=== PATIENT | male | born 1950 | race Caucasian/White ===

== ENCOUNTER 2025-06-22 08:23 | Outpatient (REF) | payer BC, SELFPAY ==
--- NOTE | ~2025-06-22 | XR_ITS ---
EXAMINATION: XR KNEE 3 VIEWS RIGHT HISTORY: M25.561 - Pain in right knee COMPARISON: There are no prior studies available for comparison. FINDINGS: Standing AP views of both knees and additional lateral and sunrise patellar views of the right knee are submitted. The patient is status post right total knee arthroplasty. The orthopedic elements are in anatomic alignment. There is no radiographic evidence of loosening. There is no fracture or dislocation. 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 The soft tissues are unremarkable. XR/XR knee RT 3V IMPRESSION: Status post right total knee arthroplasty. Electronically signed by: Jeb Purcell MD 06/22/2025 11:05 AM [place]
--- OUTSIDE RECORDS SUMMARY | 2025-06-23 08:31 | XMS_ITS | Clinical Summary ---
Author Organization [facility] [address] [facility] lding Address [address] [place] [address] Phone Care Team Providers Care Title I Paraprofessional Name Role Phone Ramiro Storey MD Primary Care Provider [phone] Allergies Active Allergy Reactions Criticality Noted Date [...] a day 1 each 5 Active lancets (TrusteerTouch Delica Plus Lancet) 33 gauge Use to [...] Care Team Description 05/26/2025 Telephone Adult Medicine [place] [address] [place] [address] Ramiro Storey MD 05/08/2025 Telephone Adult [address] [address] Ramiro Storey MD 04/18/2025 Telephone Adult [address] [address] Ramiro Storey MD 04/14/2025 Telephone Adult [address] [address] DarinLindsay, PharmD 03/30/2025 Telephone Adult [address] [address] Ramiro Storey MD 03/27/2025 Telephone Adult [address] [address] Ramiro Storey MD 03/24/2025 8:59 AM EDT - 03/24/2025 11:59 PM EDT Hospital Encounter [address] [address] Bone spur of right foot Discharge Disposition: Home or Self Care from Last 3 Months Immunizations Immunization Administration Dates Next Due Tdap Tetanus diptheria acell ular pertussis (Boostrix; Adacel) 7yo and older 12/10/2006 Surgical History Surgery Date Site/Laterality Comments HERNIA REPAIR PROCEDURE: HISTORICAL HERNIA REPAIR/ING COLONOSCOPY 08/2005 PROCEDURE: HISTORICAL COLONOSCOPY; COMMENT: normal ESOPHAGOGASTRODUODENOSCOPY 03/24/2014 PROCEDURE: [place] ESOPHAGOGASTRODUODENOSCOPY TRANSORAL DIAGNOSTIC; COMMENT: Schatzki ring dilated [...] AM EST Office Visit Adult Medicine - [place] [address] [place] [address] Nickie Manriquez NP [address] [place] [address] 07/18/2025 2:00 PM EST Consult Orthopedic Surgery - [place] [address] [phone] Zackary Dumont DPM [address] [address] Health Maintenance Due Date Last Done Comments [...] Type 2 diabetes mellitus with vascular disease ([facility] V24, [facility] V28) HEMOGLOBIN A1C Routine 03/24/2025 8:47 AM EDT Type 2 diabetes mellitus with vascular disease ([facility] V24, [facility] V28) LIPID PANEL WITH REFLEX TO DIRECT [...] Laterality Modality Lower Extremities, Foot Right [facility] 03/24/2025 1:41 PM EDT Narrative 03/24/2025 [...] Signed Date: 03/24/2025 13:41 ET Workstation ID: [id number] Transcribed By: Self Edit Transcribed Date: 03/24/2025 [...] Signed Date: 03/24/2025 13:41 ET Workstation ID: [id number] Transcribed By: Self Edit Transcribed Date: 03/24/2025 13:41 ET us Nickie Manriquez NP IMG XR PROCEDURES Final Result * Microalbumin creatinine urine ratio (03/24/2025 8:50 AM EDT) Creatinine, Urine 133.0 mg/dL LAB CHEMISTRY METHOD 03/24/2025 3:11 PM EDT [facility] Microalb, Ur 6.2 0.0 - 29.0 mg/L LAB CHEMISTRY METHOD 03/24/2025 3:11 PM EDT [facility] Microalb/Creat Ratio 5 <30 mg/g creat LAB CHEMISTRY METHOD 03/24/2025 3:11 PM EDT [facility] Urine Urine specimen obtained by clean catch procedure / Unknown Non-blood Collection / Unknown 03/24/2025 8:50 AM EDT 03/24/2025 8:50 AM EDT Nickie Manriquez NP LAB URINE ORDERABLES Final Res ult [facility] [address] [place] [address], [place] [phone] * (ABNORMAL) Lipid panel with reflex to direct LDL (03/24/2025 8:47 AM EDT) Cholesterol 191 0 - 200 mg/dL LAB CHEMISTRY METHOD 03/24/2025 12:15 PM EDT [facility] Triglycerides 159(H) 0 - 150 mg/dL LAB CHEMISTRY METHOD 03/24/2025 12:15 PM EDT [facility] HDL 38(L) >=40 mg/dL LAB CHEMISTRY METHOD 03/24/2025 12:15 PM EDT [facility] LDL Calculated 121(H) 0 - 100 mg/dL LAB CHEMISTRY METHOD 03/24/2025 12:15 PM EDT [facility] Comment:Estimated LDL Calcul ated using equation: Total cholesterol - HDL cholesterol - (Triglycerides/5) VLDL Cholesterol Roderick 31.8 mg/dL LAB CHEMISTRY METHOD 03/24/2025 12:15 PM EDT [facility] Non HDL Chol. (LDL+VLDL) 153(H) <145 mg/dL LAB CHEMISTRY METHOD 03/24/2025 12:15 PM EDT [facility] Chol/HDL Ratio 5.0(H) 0.0 - 4.4 LAB CHEMISTRY METHOD 03/24/2025 12:15 PM T [facility] Blood Venous blood specimen / Unknown Venipuncture / Unknown 03/24/2025 8:47 AM EDT 03/24/2025 8:47 AM EDT us Nickie Manriquez NP LAB BLOOD ORDERABLES Final Res ult [facility] [address] [place] [address], [place] [phone] * (ABNORMAL) Hemoglobin A1c (03/24/2025 8:47 AM EDT) Hemoglobin A1C 8.8(H) <6.5 % LAB CHEMISTRY METHOD 03/24/2025 5:38 PM EDT [facility] Mean Bld Glu Estim. 206 mg/dL LAB CHEMISTRY METHOD 03/24/2025 5:38 PM EDT [facility] Blood Venous blood specimen / Unknown Venipuncture / Unknown 03/24/2025 8:47 AM EDT 03/24/2025 8:47 AM EDT [facility] BLOOD ORDERABLES Final Res ult Performing Organization Address City/[facility]/ZIP Co de Phone Number [facility] [address] [place] [address], [place] [phone] * (ABNORMAL) Comprehensive metabolic panel (03/24/2025 8:47 AM EDT) Pathologist [facility] Sodium 132(L) 133 - 145 mmol/L LAB CHEMISTRY METHOD 03/24/2025 12:15 PM EDT [facility] Potassium 5.0 3.5 - 5.5 mmol/L LAB CHEMISTRY METHOD 03/24/2025 12:15 PM EDT [facility] Chloride 98 96 - 110 mmol/L LAB CHEMISTRY METHOD 03/24/2025 12:15 PM EDT [facility] CO2 28 21 - 32 mmol/L LAB CHEMISTRY METHOD 03/24/2025 12:15 PM EDT [facility] Anion Gap 6 3 - 11 LAB CHEMISTRY METHOD 03/24/2025 12:15 PM EDT [facility] Glucose 166(H) 70 - 100 mg/dL LAB CHEMISTRY METHOD 03/24/2025 12:15 PM [facility] BUN 13 5 - 25 mg/dL LAB CHEMISTRY METHOD 03/24/2025 12:15 PM [facility] Creatinine 1.12 0.70 - 1.30 mg/dL LAB CHEMISTRY METHOD 03/24/2025 12:15 PM [facility] eGFR 68 >=60 mL/min/1. 73m2 LAB CHEMISTRY METHOD 03/24/2025 12:15 PM [facility] Comment:Calculation based on the Chronic Kidney Disease Epidemiology Collaboration (CKD-EPI) equation refit without adjustment for race. BUN/Creatinine Ratio 11.6 LAB CHEMISTRY METHOD 03/24/2025 12:15 PM [facility] Calcium 9.6 8.5 - 10.5 mg/dL LAB CHEMISTRY METHOD 03/24/2025 12:15 PM [facility] AST (SGOT) 30 10 - 42 unit/L LAB CHEMISTRY METHOD 03/24/2025 12:15 PM [facility] ALT (SGPT) 50 10 - 60 unit/L LAB CHEMISTRY METHOD 03/24/2025 12:15 PM [facility] Alkaline Phosphatase 71 42 - 121 unit/L LAB CHEMISTRY METHOD 03/24/2025 12:15 PM [facility] Total Protein 7.3 6.0 - 8.0 g/dL LAB CHEMISTRY METHOD 03/24/2025 12:15 PM [facility] Albumin 4.2 3.2 - 5.0 g/dL LAB CHEMISTRY METHOD 03/24/2025 12:15 PM [facility] Total Bilirubin 0.7 0.0 - 1.4 mg/dL LAB CHEMISTRY METHOD 03/24/2025 12:15 PM [facility] Blood Venous blood specimen / Unknown Venipuncture / Unknown 03/24/2025 8:47 AM EDT 03/24/2025 8:47 AM EDT Nickie Manriquez NP LAB BLOOD ORDERABLES Final Res ult [facility] [address] [place] [address], [place] [phone] * Diabetes Foot Exam (12/09/2023) [facility] Diabetes: Annual Foot Exam Abstracted Historical Provider HEALTH MAINTENANCE Final Result * Stool Based Tests (FOBT/FIT) (02/11/2018) [facility] Colorectal Cancer Screening: Stool Based Tests Negative, Abstracted [facility] Provider HEALTH MAINTENANCE Final Result * Abdominal Aortic Aneurysm Screen (06/20/2015) [facility] Abdominal Aortic Aneurysm (AAA) Screening Abstracted Anatomical Region Laterality Modality Other Historical Provider HEALTH MAINTENANCE Final Result * Hepatitis C Screening (12/01/2013) [facility] Hepatitis C Screening Abstracted [facility] Provider HEALTH MAINTENANCE Final Result from Last 3 Months or Most Recently Relevant to Health Maintenance Insurance [facility] Care Teams Title I Paraprofessional Relationship Specialty Start Date End Date Ramiro Storey MD [address] [place] [address] [address] [facility] - General 04/27/01
--- OUTSIDE RECORDS SUMMARY | 2025-06-23 08:31 | XMS_ITS | Clinical Summary ---
Author Organization [facility] Prior to 12/03/[address] [place] [address] Care Team Providers Care Market Analysis Director Name Role Phone Ezequiel Storey MD Primary Care Provider [phone] Allergies Active Allergy Reactions Criticality Noted Date [...] age to complete this topic Care Teams Market Analysis Director Relationship Specialty Start Date End Date Ezequiel Storey MD PCP - General Electronics Supervisor 08/27/20
--- OUTSIDE RECORDS SUMMARY | 2025-06-23 08:31 | XMS_ITS | Encounter Summary ---
Author Organization [facility] Address [address] [place] [address] Care Team Providers Care Siding Mechanic Name Role Phone Ramiro Storey MD Primary Care Provider [phone] Reason for Referral * Consultation (Routine) - Closed Specialty Diagnoses / Procedures Referred By Contac t Referred To Contact Orthopaedics Diagnoses Injury of right knee, initial encounter Ramiro Storey MD [address] [place], [place] Phone: tel: fax: Kilo Sotelo MD [address] [place] [address] Drive [address] [place] [address] Phone: tel: fax: Referral ID Status Reason Start Date Expiration Date V isits Requested Visits Authorized [id number] Closed Specialty Services Required 05/29/2025 05/29/2026 2 2 Reason for Visit * Reason Onset Date Comments Referral 05/26/2025 Encounter Details Date Type Department Care Team (Late st Contact Info) Description 05/26/2025 Telephone Adult Medicine - [place] [address] [place] [phone] Ramiro Storey MD [address] [place], [place] Social History Tobacco Use Types Packs/Day [...] this visit: Initial Visit Address of Specialist: [address] [place] [address] [place] [address] Phone # of Specialist: [phone] Fax #: (if applicable): n/a Does patient have an appointment scheduled?: no Date of appointment- (including a retro-request): TBD Is this appointment related to: Not MVA, worker compensation, or surgery related documented in this encounter Plan of Treatment Upcoming Encounters Date Type Department Care Team (Late st Contact Info) Description 07/12/2025 9:00 AM EST Office Visit Adult Medicine - [place] [address] [place] [address] Nickie Manriquez NP [address] [place] [address] 07/18/2025 2:00 PM EST Consult Orthopedic Surgery - [place] [address] [address] Zackary Dumont, DPBrenden [address] [address] Scheduled Referrals Name Type Priority Associated Diagnoses Order Schedule Ambulatory referral to Orthopedic Outpatient Referral Routine Injury of right knee, initial encounter 1 Occurrences starting 05/29/2025 until 05/26/2026 documented as of this encounter Visit Diagnoses Diagnosis Injury of right knee, initial encounter- Primary documented in this encounter Care Teams Siding Mechanic Relationship Specialty Start Date End Date Ramiro Storey MD [address] [place] [address] PCP - General 04/27/01 documented as of this encounter
--- OUTSIDE RECORDS SUMMARY | 2025-06-23 08:31 | XMS_ITS | Data Portability ---
Author Organization [place] [facility] [place] Address [address] [place] [address] Assessment Encounter Date Assessment Date Assessment LastModified [...] Recorded Time Pain of right knee joint [id number] Active 2022 Kilo Sotelo MD [address] [place] [address] [address], [place], [address] [facility] 15:00:10 Problem Notes None recorded. Procedures Surgical History Date Name Laterality Status Provider Name and Address Organization Details Recorded Time Hernia Repair completed Yahaiar Mendoza [place] - [facility], 10/03/2022 10:26:38 Imaging Results None recorded. Procedure Notes None recorded. Medical Equipment None Reported. Allergies Allergen ID Allergen Name Allergen Category Reaction Reaction Severity Criticality Documentation Date Start Date Code Code System Note Provider Name and Address Organization Details Recorded Time 287994 atenolol medicatio n Not available Not available Not available 03/28/20252004 1202 RxNorm React ion: Other (See Comme nts), sever ity: Unkno wn Not Available [facility] 5 01:31:54 1272 morphine medicatio n Not available Not available Not available 10/03/2022 7052 RxNorm Yahaira Mendoza null, [place] [facility] 3 10:24:41 Medications Name Sig Start [...] Updated DateTime 10/03/2022 172.72 cm 36.5 kg/m2 584272.[address] [place] [facility], 10/03/2022 10:25:44 Social History None recorded. Functional [...] Diagnosis Note 3048 MD PAVAN Hughescarmelita stern [address] [place] [address] [place] [address] 10/03/2022 10:13:49 10/03/2022 10:40:48 Pain of right knee joint [id number] 70420 M25.561 Health Concerns Section Related Observation LastModified by Organization Detai ls LastModified Time None Recorded Concern Status LastModified by Organization Details LastModified Time None Recorded Advance Directives Directive None Recorded Payers Insurance Date Sequence Insurance Name Policy Number Policy Suh Covered Member ID Suh Member ID Guarantor Name 01/02/2023 1 [facility]: [facility] ([facility] [id number] Juan P Lewis [id number] Juan Lewis Notes Date Note Type [...] any fevers or chills. Kilo Sotelo MD [address] [place] [address], [phone], [place] [facility] 10/04/2022 15:00:42
== END 2025-06-22 08:24 | disposition home or self-care (01) ==
LOC: HO.HOSX 08:23
PROVIDERS: Visit Provider Orthopaedic Surgery
DX: M25.561 Pain in right knee (principal); Z96.651 Presence of right artificial knee joint
CPT/HCPCS: 73562

== ENCOUNTER 2025-06-22 09:45 | Outpatient (AMB) | payer BC, SELFPAY ==
--- NOTE | 2025-06-22 11:20 | MHC.OFFVIS ---
Vital Signs 06/22/25 11:36 Height 5 ft 7 in Weight 225 lb BMI 35.2 Handedness Right Intake Visit Reasons: INVESTIGATIVE AGENT: right knee pain Intake Note: Juan is a 75 year old female who presents today for her right knee pain, DOI 01/12/25. Patient reports her was climbing a small embankment and he felt a sharp pain in his ankle and lead him to fall. With his foot hurting it is affecting his knee. Patient is hearing a crunching sound in his knee since the injury. Patient states when he puts full weight on his feet - Hx of 2 meniscus repairs 2014 and 2016 - History of right TKA with Dr Kilo Sotelo in 08/08/22 Allergies acetaminophen (From Vicodin) Allergy (Verified 06/22/25 11:34) Stomach Upset hydrocodone (From Vicodin) Allergy (Verified 06/22/25 11:34) Stomach Upset oxycodone Allergy (Verified 06/22/25 11:34) Stomach Upset HPI HPI INVESTIGATIVE AGENT: right knee pain: Details: The patient is a 75-year-old male who presents to the office today for evaluation of right knee clunking. Patient reports that he had a prior right total knee arthroplasty with Dr. Sotelo on 08/08/2022. He sustained a mechanical fall on 01/12/2025 and ever since then has noted that he has heard clunking in the right knee with a varus and valgus movements. [facility] Social History (Updated 06/22/25 @ 11:36 by Dennis Ivy) Alcohol intake: current Alcohol intake frequency: holidays/special occasions only Patient Tobacco Use Status: Never used Tobacco Current occupational status: retired Current occupation: right hand dominant Review of Systems Const All systems reviewed & are unremarkable except as noted in HPI and below Physical Exam Vital Signs: BMI result Body Mass Index 35.2 Const General: cooperative, healthy appearing and no acute distress Resp Effort & Inspection: normal respiratory effort and able to speak in complete sentences Extrem Other: Right knee range of motion 0-120. No excessive varus or valgus laxity with stress. No evidence of infection. NVI. Psych Appearance: grossly normal Mental Status: mental status grossly normal Attitude: cooperative Assessment & Plan Assessment & Plan (1) History of arthroplasty of right knee: Code(s): Z96.651 - Presence of right artificial knee joint Category: Surgical Plan The patient is a 75-year-old male who presents to the office today for evaluation of right knee clunking. Patient reports that he had a prior right total knee arthroplasty with Dr. Sotelo on 08/08/2022. He sustained a mechanical fall on 01/12/2025 and ever since then has noted that he has heard clunking in the right knee with a varus and valgus movements. While in the office today, x-rays were obtained and negative for any periprosthetic fracture or evidence of arthroplasty loosening. Patient does not have excessive laxity with a varus or valgus stress. I educated the patient that the sound that he is hearing as well as no associated pain is normal status post knee arthroplasty. Patient will follow up PRN, sooner if needed. Orders: Orders XR knee RT 3V Today M25.561 - Pain in right knee Coding Level of Care Code New Pt Level 3 (19614) Add On Problem Visit Only Diagnoses History of arthroplasty of right knee Z96.651
--- OUTSIDE RECORDS SUMMARY | 2025-06-22 11:35 | XMS_ITS ---
Author Name [facility] Organization Unknown Encounters Encounter Type Encounter Reason Primary Diagnosis Location Date Ambulatory [facility] 06/15/2023 Ambulatory [facility] 01/20/2023 Ambulatory [facility] [place] 10/05/2022 Care Team Organization Name Specialty Phone Email Start Date End Da te [facility] 06/05/2022 02/22/2024 [facility] David Caballero [place] [facility] 05/13/2022 02/22/2024
--- OUTSIDE RECORDS SUMMARY | 2025-06-22 11:35 | XMS_ITS | Clinical Summary ---
Author Organization [facility] Prior to 12/03/[address] [place] [id number] Care Team Providers Care Air Pollution Auditor Name Role Phone Ezequiel Storey MD Primary Care Provider [phone] Allergies Active Allergy Reactions Criticality Noted Date Comments Atenolol Other (See Comments) 06/19/2005 Morphine Morphine And Codeine 08/22/2022 Morphine Sulfate-Nacl 06/19/2005 Medications Medication Sig Dispensed Refills Start Date End Date Status albuterol (ProAir HFA) 108 (90 Base) MCG/ACT inhaler Inhale 2 puffs into the lungs. 0 07/21/2019 Active aspirin (SB Low Dose ASA EC) 81 MG EC tablet Take by mouth. 0 07/26/2009 Active lisinopril-hydroCH LOROthiazide (PRINZIDE,ZESTORET IC) tablet 10-12.5 mg lisinopril 10 mg-hydrochlorothiaz elie 12.5 mg tablet 0 04/18/2020 Active metFORMIN (GLUCOPHAGE-XR) ER 24 hr tablet 500 mg Take 500 mg by mouth. 0 04/18/2020 Active pravastatin (PRAVACHOL) tablet 40 mg Take 40 mg by mouth daily. 0 09/15/2020 Active tadalafil (CIALIS) 10 MG tablet tadalafil 10 mg tablet 0 10/15/2020 Active HYDROmorphone (Dilaudid) 2 MG tablet Take 1-2 tabs every 4 hours as needed for pain 40 tablet 0 08/09/2022 Active methocarbamol (ROBAXIN) 750 MG tablet Take 1 tablet (750 mg total) by mouth every 6 (six) hours. 120 tablet 0 08/19/2022 Active amoxicillin (AMOXIL) 500 MG tablet Take 4 tabs 1 hour prior to dental appointment 20 tablet 3 08/22/2022 Active Social History Tobacco Use Types Packs/Day Years Used Date Smoking Tobacco: Never Assessed Sex and Gender Information Value Date Recorded Sex Assigned at Not on file Gender Identity Not on file Sexual Orientation Not on file Job Start Date Occupation Industry Not on file Not on file Not on file Last Filed Vital Signs Vital Sign Reading Time Taken Comments Blood Pressure - - Pulse - - Temperature - - Respiratory Rate - - Oxygen Saturation - - Inhaled Oxygen Concentration - - Weight 108.9 kg (240 lb) 05/27/2022 11:30 AM EST Height 172.7 cm (5' 8 ) 12/05/2020 9:46 AM EDT Body Mass Index 36.49 12/05/2020 9:46 AM EDT Plan of Treatment Health Maintenance Due Date Last Done Comments Hepatitis C Screening 1950 COVID-19 Vaccine (#1) 1949 Depression Screening 1961 BMI Counseling 1967 Preventative Health Evaluation 1967 Shingrix-Zoster Vaccine (1 of 2) 1999 Fall Risk Assessment 2014 Pneumococcal Vaccine (1 of 1 - PCV) 2014 DTap / Tdap / Td (2 - Td or Tdap) 12/10/2016 007 RSV Adult > 60+ Yrs or Pregn ant (1 - 1-dose 75+ series) 01/13/2024 Influenza Vaccine (#1) 2025 Hepatitis B Vaccines Aged Out No long er eligible based on patient's age to complete this topic RSV Ped < 20 months Aged Out No longe r eligible based on patient's age to complete this topic Care Teams Air Pollution Auditor Relationship Specialty Start Date End Date Ezequiel Storey MD PCP - General Dna Sequencing Associate 08/27/20
--- OUTSIDE RECORDS SUMMARY | 2025-06-22 11:35 | XMS_ITS | Clinical Summary ---
Author Organization [facility] [address] [facility] [address] Address [address] [place] [address] Phone Care Team Providers Care Congressional District Aide Name Role Phone Ramiro Storey MD Primary Care Provider [phone] Allergies Active Allergy Reactions Criticality Noted Date Comments Atenolol 06/19/2005 unknown Morphine 06/19/2005 High dose Medications aspirin 81 mg EC tablet 1 TABLET DAILY 0 Active ibuprofen (ADVIL,MOTRIN) 800 mg tablet Take 200 mg by mouth as needed. 1 Active omeprazole (PriLOSEC) [address] capsule Take 1 Cap by mouth daily. 0 Active tadalafiL (CIALIS) 10 mg tablet TAKE 1 TABLET BY MOUTH AT BEDTIME NEEDED 3 Active metFORMIN XR (GLUCOPHAGE-XR) 500 mg 24 hr tablet TAKE 1 TABLET BY MOUTH DAILY WITH BREAKFAST. DO NOT CRUSH, CHEW, OR SPLIT. 90 tablet 5 Active Additional Information Patient not taking.Reported on 03/21/2025 lisinopril-hydro CHLOROthiazide (PRINZIDE,ZESTOR ETIC) 10-12.5 mg per tabletIndication s:Primary hypertension Take 1 tablet by mouth 1 (one) time each day. 90 each 1 5 09/18/19 26 Active SITagliptin phosphate (Januvia) 25 mg tabletIndication s:Type 2 diabetes mellitus with vascular disease (CMS/HCC V24, CMS/HCC V28) Take 1 tablet (25 mg total) by mouth 1 (one) time each day. 30 tablet 11 5 03/27/20 Active blood sugar diagnostic (OneTouch Verio test strips) test strip Use to test blood sugar once a day 100 each 1 5 04/25/20 26 Active blood-glucose meter (OneTouch Verio Flex meter) misc 1 (one) time each day. Use to test sugar once a day 1 each 5 Active lancets (SynapSenseTouch Delica Plus Lancet) 33 gauge Use to test blood sugar once a day 100 each 1 5 04/25/20 26 Active Active Problems Problem Noted Date Diagnosed Date Bruit 04/08/2019 Type 2 diabetes mellitus with vascular disease 0 10/06/2018 Overview (05/02/2024): 10/22. Prev OGT. A1c 6.8. Obesity (BMI 30-39.9) 04/06/2018 Esophageal erosions 03/24/2014 Overview (05/02/2024): Noted egd 03/19 Schatzki's ring 03/24/2014 Overview (05/02/2024): EGD dilation 03/19 Snoring 04/13/2012 Anxiety 09/17/2010 Overview (05/02/2024): Short term lorazapam Hypercholesteremia 08/16/2008 Overview (05/02/2024): RF age, FH Intol simvastatin Murmur 08/02/2008 Chest pain 09/24/2005 Overview (05/02/2024): Stress Mibi negative--01/05. 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 Overview (05/02/2024): viagra Hypertension 04/16/2005 Encounters Date Type Department Care Team Description 05/26/2025 Telephone Adult Medicine [place] [address] [place] [address] Ramiro Storey MD 05/08/2025 Telephone Adult [address] [phone] Ramiro Storey MD 04/18/2025 Telephone Adult [address] [address] Ramiro Storey MD 04/14/2025 Telephone Adult [address] [address] DarinLindsay, PharmD 03/30/2025 Telephone Adult [address] [phone] Ramiro Storey MD 03/27/2025 Telephone Adult [address] [address] Ramiro Storey MD 03/24/2025 8:59 AM EDT - 03/24/2025 11:59 PM EDT Hospital Encounter [address] [phone] Bone spur of right foot Discharge Disposition: Home or Self Care from Last 3 Months Immunizations Immunization Administration Dates Next Due Tdap Tetanus diptheria acell ular pertussis (Boostrix; Adacel) 7yo and older 12/10/2006 Surgical History Surgery Date Site/Laterality Comments HERNIA REPAIR PROCEDURE: HISTORICAL HERNIA REPAIR/ING COLONOSCOPY 08/2005 PROCEDURE: HISTORICAL COLONOSCOPY; COMMENT: normal ESOPHAGOGASTRODUODENOSCOPY 03/24/2014 PROCEDURE: DE ESOPHAGOGASTRODUODENOSCOPY TRANSORAL DIAGNOSTIC; COMMENT: Schatzki ring dilated to 50 F; HH; esophageal erosion KNEE SURGERY 02/2015 PROCEDURE: HISTORICAL KNEE SURGERY; COMMENT: right arthroscopy, [place] MULTIPLE TOOTH EXTRACTIONS 11/24/2016 PROCEDURE: EACH ADD TOOTH EXTRACTION TOTAL KNEE ARTHROPLASTY 08/2022 Right PROCEDURE: HISTORICAL TOTAL KNEE REPLACE Medical History Medical History Date Comments Essential hypertension, benign 04/16/05 D X:Essential hypertension, benign Syncope and collapse 11/09/04 DX:Syncope and collapse Other disorders of bone and cartilage(733.99) 03/31/03 DX:Other disorders of bone a nd cartilage(733.99) Acute conjunctivitis, unspecified 03/27/03 DX:Acute conjunctivitis, unspecified Disorders of bursae and tend ons in shoulder region, unspecified 03/23/03 DX:Disorders of bursae an d tendons in shoulder region, unspecified Lumbago 04/27/01 DX:Lumbago Family History Medical History Relation Name Comments Coronary artery disease Brother 1 Relation Name Status Comments Brother 1 Brother 2 Social History Tobacco Use Types Packs/Day Years Used Date Smoking Tobacco: Former Cigarettes 1 Q uit: 07/06/1979 Smokeless Tobacco: Never Alcohol Use Standard Drinks/Week Comments Not Currently 0 (1 standard drink = 0.6 oz pur e alcohol) Sex and Gender Information Value Date Recorded Sex Assigned at Not on file Legal Sex Male 4:42 PM EST Gender Identity Not on file Sexual Orientation Not on file Last Filed Vital Signs Vital Sign Reading Time Taken Comments Blood Pressure 133/73 03/21/2025 2:55 PM EDT Pulse 73 03/21/2025 2:55 PM EDT Temperature 36.8 C (98.2 F) 03/21/2025 2:55 PM EDT Respiratory Rate - - Oxygen Saturation - - Inhaled Oxygen Concentration - - Weight 108 kg (237 lb) 03/21/2025 2:55 PM EDT Height 172.7 cm (5' 8 ) 03/21/2025 2:55 PM EDT Body Mass Index 36.04 03/21/2025 2:55 PM EDT Plan of Treatment Upcoming Encounters Date Type Department Care Team (Late st Contact Info) Description 07/12/2025 9:00 AM EST Office Visit Adult Medicine - [place] [address] [place] [address] Nickie Manriquez NP [address] [place] [address] 07/18/2025 2:00 PM EST Consult Orthopedic Surgery - [place] [address] [phone] Zackary Dumont DPM [address] [address] Health Maintenance Due Date Last Done Comments Diabetes: Annual Retina Eye Exam 1960 Pneumococcal Vaccine: 50+ Years (1 of 2 - PCV) 01/13/1968 Zoster Vaccines (1 of 2) 1999 DTaP,Tdap,and Td Vaccines (2 - Td or Tdap) 12/10/2016 12/10/2006 Colorectal Cancer Screening: Stool Based Tests (FOBT/FIT) 06/04/2022 02/11/2018 Falls Risk Assessment 06/04/2022 Social Influencers of Health Screening 06/04/2022 RSV Immunization Adult Patients (1 - 1-dose 75+ series) 01/13/2024 Depression Screening 07/06/2024 Diabetes: Annual Foot Exam 12/08/2024 12/09/2023 COVID-19 Vaccine (2024-2 6 season) 2025 Influenza Vaccine (#1) 2025 Diabetes: Blood Sugar Contro l Test (HGBA1C) 09/21/2025 03/24/2025, 12/07/2023, 12/07/2023 Diabetes: Annual Urine Albumin-Creatinine Ratio (uACR) 03/24/2026 03/24/2025, 12/07/2023 Diabetes: Annual GFR (Glomerular Filtration Rate) 03/24/2026 03/24/2025, 12/07/2023, 12/07/2023 Hypertension/CHF/CAD Annual BMP Blood Test 03/24/2026 03/24/2025, 12/07/2023, 12/07/2023 Cholesterol Screening (Lipid Panel) 03/24/2030 03/24/2025, 12/07/2023, 12/07/2023 Hepatitis C Screening Completed 12/01/2013 Abdominal Aortic Aneurysm (AAA) Screen Discontinued 06/20/2015 HIB Vaccines Aged Out No longer eligi ble based on patient's age to complete this topic HPV Vaccines Aged Out No longer eligi ble based on patient's age to complete this topic Hepatitis A Vaccines Aged Out No long er eligible based on patient's age to complete this topic Hepatitis B Vaccines Aged Out No long er eligible based on patient's age to complete this topic IPV Vaccines Aged Out No longer eligi ble based on patient's age to complete this topic MMR Vaccines Aged Out No longer eligi ble based on patient's age to complete this topic Meningococcal ACWY Vaccine Aged Out N o longer eligible based on patient's age to complete this topic Meningococcal B Vaccine Aged Out No l onger eligible based on patient's age to complete this topic RSV Immunization Patients Under 20 months Aged Out No longer eligible based on patient's age to complete this topic Varicella Vaccines Aged Out No longer eligible based on patient's age to complete this topic Procedures Procedure Name Priority Date/Time Associated Diagnosis Comments XR FOOT 3+ VIEWS RIGHT Routine 03/24/2025 9:14 AM EDT Bone spur of right foot MICROALBUMIN CREATININE URINE RATIO Routine 03/24/2025 8:50 AM EDT Type 2 diabetes mellitus with vascular disease ([facility] V24, [facility] V28) HEMOGLOBIN A1C Routine 03/24/2025 8:47 AM EDT Type 2 diabetes mellitus with vascular disease ([facility] V24, [facility] V28) LIPID PANEL WITH REFLEX TO DIRECT LDL Routine 03/24/2025 8:47 AM EDT Hypercholesteremia COMPREHENSIVE METABOLIC PANEL Routine 03/24/2025 8:47 AM EDT Primary hypertension DIABETES FOOT EXAM Routine 12/09/2023 STOOL BASED TEST Routine 02/11/2018 ABDOMINAL AORTIC ANEURYSM SCRREN Routine 06/20/2015 HEPATITIS C SCREENING Routine 12/01/2013 from Last 3 Months or Most Recently Relevant to Health Maintenance Results * XR Foot 3+ Views Right (03/24/2025 9:14 AM EDT) Anatomical Region Laterality Modality Lower Extremities, Foot Right [facility] 03/24/2025 1:41 PM EDT Narrative 03/24/2025 1:41 PM EDT Right foot, 3 views. History bone spur. There are mild degenerative changes in the first metatarsophalangeal joint. There is tiny inferior calcaneal spur. No fractures or dislocations. CONCLUSIONS: Mild degenerative changes. Small calcaneal spur. -------- FINAL REPORT -------- Dictated By: Emely Vivas Dictated Date: 03/24/2025 13:41 ET Assigned Physician: Emely Vivas Reviewed and Electronically Signed By: Emely Vivas Signed Date: 03/24/2025 13:41 ET Workstation ID: [id number] Transcribed By: Self Edit Transcribed Date: 03/24/2025 13:41 ET Procedure Note Emely Vivas MD - 03/24/2025 Right foot, 3 views. History bone spur. There are mild degenerative changes in the first metatarsophalangealjoint. There is tiny inferior calcaneal spur. No fractures ordislocations. CONCLUSIONS: Mild degenerative changes. Small calcaneal spur. -------- FINAL REPORT -------- Dictated By: Emely Vivas Dictated Date: 03/24/2025 13:41 ET Assigned Physician: Emely Vivas Reviewed and Electronically Signed By: Emely Vivas Signed Date: 03/24/2025 13:41 ET Workstation ID: [id number] Transcribed By: Self Edit Transcribed Date: 03/24/2025 13:41 ET us Nickie Manriquez NP IMG XR PROCEDURES Final Result * Microalbumin creatinine urine ratio (03/24/2025 8:50 AM EDT) Creatinine, Urine 133.0 mg/dL LAB CHEMISTRY METHOD 03/24/2025 3:11 PM EDT [facility] Microalb, Ur 6.2 0.0 - 29.0 mg/L LAB CHEMISTRY METHOD 03/24/2025 3:11 PM EDT [facility] Microalb/Creat Ratio 5 <30 mg/g creat LAB CHEMISTRY METHOD 03/24/2025 3:11 PM EDT [facility] Urine Urine specimen obtained by clean catch procedure / Unknown Non-blood Collection / Unknown 03/24/2025 8:50 AM EDT 03/24/2025 8:50 AM EDT Nickie Manriquez NP LAB URINE ORDERABLES Final Res ult [facility] [address] [place] [address], [place] [phone] * (ABNORMAL) Lipid panel with reflex to direct LDL (03/24/2025 8:47 AM EDT) Cholesterol 191 0 - 200 mg/dL LAB CHEMISTRY METHOD 03/24/2025 12:15 PM EDT [facility] Triglycerides 159(H) 0 - 150 mg/dL LAB CHEMISTRY METHOD 03/24/2025 12:15 PM EDT [facility] HDL 38(L) >=40 mg/dL LAB CHEMISTRY METHOD 03/24/2025 12:15 PM EDT [facility] LDL Calculated 121(H) 0 - 100 mg/dL LAB CHEMISTRY METHOD 03/24/2025 12:15 PM EDT [facility] Comment:Estimated LDL Calcul ated using equation: Total cholesterol - HDL cholesterol - (Triglycerides/5) VLDL Cholesterol Roderick 31.8 mg/dL LAB CHEMISTRY METHOD 03/24/2025 12:15 PM EDT [facility] Non HDL Chol. (LDL+VLDL) 153(H) <145 mg/dL LAB CHEMISTRY METHOD 03/24/2025 12:15 PM EDT [facility] Chol/HDL Ratio 5.0(H) 0.0 - 4.4 LAB CHEMISTRY METHOD 03/24/2025 12:15 PM T [facility] Blood Venous blood specimen / Unknown Venipuncture / Unknown 03/24/2025 8:47 AM EDT 03/24/2025 8:47 AM EDT us Nickie Manriquez NP LAB BLOOD ORDERABLES Final Res ult [facility] [address] [place] [address], [place] [phone] * (ABNORMAL) Hemoglobin A1c (03/24/2025 8:47 AM EDT) Hemoglobin A1C 8.8(H) <6.5 % LAB CHEMISTRY METHOD 03/24/2025 5:38 PM EDT [facility] Mean Bld Glu Estim. 206 mg/dL LAB CHEMISTRY METHOD 03/24/2025 5:38 PM EDT [facility] Blood Venous blood specimen / Unknown Venipuncture / Unknown 03/24/2025 8:47 AM EDT 03/24/2025 8:47 AM EDT [facility] BLOOD ORDERABLES Final Res ult Performing Organization Address City/[facility]/ZIP Co de Phone Number [facility] [address] [place] [address], [place] [phone] * (ABNORMAL) Comprehensive metabolic panel (03/24/2025 8:47 AM EDT) Pathologist [facility] Sodium 132(L) 133 - 145 mmol/L LAB CHEMISTRY METHOD 03/24/2025 12:15 PM EDT [facility] Potassium 5.0 3.5 - 5.5 mmol/L LAB CHEMISTRY METHOD 03/24/2025 12:15 PM EDT [facility] Chloride 98 96 - 110 mmol/L LAB CHEMISTRY METHOD 03/24/2025 12:15 PM EDT [facility] CO2 28 21 - 32 mmol/L LAB CHEMISTRY METHOD 03/24/2025 12:15 PM EDT [facility] Anion Gap 6 3 - 11 LAB CHEMISTRY METHOD 03/24/2025 12:15 PM EDT [facility] Glucose 166(H) 70 - 100 mg/dL LAB CHEMISTRY METHOD 03/24/2025 12:15 PM [facility] BUN 13 5 - 25 mg/dL LAB CHEMISTRY METHOD 03/24/2025 12:15 PM [facility] Creatinine 1.12 0.70 - 1.30 mg/dL LAB CHEMISTRY METHOD 03/24/2025 12:15 PM [facility] eGFR 68 >=60 mL/min/1. 73m2 LAB CHEMISTRY METHOD 03/24/2025 12:15 PM [facility] Comment:Calculation based on the Chronic Kidney Disease Epidemiology Collaboration (CKD-EPI) equation refit without adjustment for race. BUN/Creatinine Ratio 11.6 LAB CHEMISTRY METHOD 03/24/2025 12:15 PM [facility] Calcium 9.6 8.5 - 10.5 mg/dL LAB CHEMISTRY METHOD 03/24/2025 12:15 PM [facility] AST (SGOT) 30 10 - 42 unit/L LAB CHEMISTRY METHOD 03/24/2025 12:15 PM [facility] ALT (SGPT) 50 10 - 60 unit/L LAB CHEMISTRY METHOD 03/24/2025 12:15 PM [facility] Alkaline Phosphatase 71 42 - 121 unit/L LAB CHEMISTRY METHOD 03/24/2025 12:15 PM [facility] Total Protein 7.3 6.0 - 8.0 g/dL LAB CHEMISTRY METHOD 03/24/2025 12:15 PM [facility] Albumin 4.2 3.2 - 5.0 g/dL LAB CHEMISTRY METHOD 03/24/2025 12:15 PM [facility] Total Bilirubin 0.7 0.0 - 1.4 mg/dL LAB CHEMISTRY METHOD 03/24/2025 12:15 PM [facility] Blood Venous blood specimen / Unknown Venipuncture / Unknown 03/24/2025 8:47 AM EDT 03/24/2025 8:47 AM EDT Nickie Manriquez NP LAB BLOOD ORDERABLES Final Res ult [facility] [address] [place] [address], [place] [phone] * Diabetes Foot Exam (12/09/2023) [facility] Diabetes: Annual Foot Exam Abstracted Historical Provider HEALTH MAINTENANCE Final Result * Stool Based Tests (FOBT/FIT) (02/11/2018) [facility] Colorectal Cancer Screening: Stool Based Tests Negative, Abstracted [facility] Provider HEALTH MAINTENANCE Final Result * Abdominal Aortic Aneurysm Screen (06/20/2015) [facility] Abdominal Aortic Aneurysm (AAA) Screening Abstracted Anatomical Region Laterality Modality Other Historical Provider HEALTH MAINTENANCE Final Result * Hepatitis C Screening (12/01/2013) [facility] Hepatitis C Screening Abstracted [facility] Provider HEALTH MAINTENANCE Final Result from Last 3 Months or Most Recently Relevant to Health Maintenance Insurance [facility] Care Teams [place] Aide Relationship Specialty Start Date End Date Ramiro Storey MD [address] [place] [id number] [facility] - General 04/27/01
--- OUTSIDE RECORDS SUMMARY | 2025-06-22 11:35 | XMS_ITS | Encounter Summary ---
Author Organization [facility] Address [address] [place] [address] Care Team Providers Care Apprentice Funeral Director Name Role Phone Ramiro Storey MD Primary Care Provider [phone] Reason for Referral * Consultation (Routine) - Closed Specialty Diagnoses / Procedures Referred By Contac t Referred To Contact Orthopaedics Diagnoses Injury of right knee, initial encounter Ramiro Storey MD [address] [place], [place] Phone: tel: fax: Kilo Sotelo MD [address] [place] [address] Drive [address] [place] [address] Phone: tel: fax: Referral ID Status Reason Start Date Expiration Date V isits Requested Visits Authorized [id number] Closed Specialty Services Required 05/29/2025 05/29/2026 2 2 Reason for Visit * Reason Onset Date Comments Referral 05/26/2025 Encounter Details Date Type Department Care Team (Late st Contact Info) Description 05/26/2025 Telephone Adult Medicine - [place] [address] [place] [phone] Ramiro Storey MD [address] [place], [place] Social History Tobacco Use Types Packs/Day Years [...] on file Sexual Orientation Not on file documented as of this encounter Progress Notes * Ramiro Storey MD - 05/29/2025 7:34 AM EST ok * Elsi Roper - 05/26/2025 9:30 AM EST Referral Request: What insurance does the patient have today? BCBS O Referrals cannot be processed if the insurance is not accurate. If the insurance listed above in red is NO BILLING INFORMATION FOUND FOR THIS ENCOUTNER The patients correct insurance must be obtained and registered in [facility] or their referral can not be processed. Who is calling to request this referral? patient If the caller is not the patient, what is their name? not applicable Ask the patient WHO referred them to this specialty: Patient self referred FIRST and LAST NAME of SPECIALIST PATIENT is seeing: Dr. Kilo Sotelo MD What specialty is this? Orthopedic DIAGNOSIS Patient is being seen for (Not a body part or a procedure): right knee replacement injury Have you seen this SPECIALIST for this PROBLEM/DX before? If YES, when? No Have you checked REVIEW or the APPT DESK to see if this referral has already been done or has visits left? yes Is this visit: Initial Visit Address of Specialist: [address] [place] [address] [place] [address] Phone # of Specialist: [phone] Fax #: (if applicable): n/a Does patient have an appointment scheduled?: no Date of appointment- (including a retro-request): TBD Is this appointment related to: Not MVA, worker compensation, or surgery related documented in this encounter Plan of Treatment Upcoming Encounters Date Type Department Care Team (Late st Contact Info) Description 07/12/2025 9:00 AM EST Office Visit Adult Medicine - [place] [address] [place] [address] Nickie Manriquez NP [address] [place] [address] 07/18/2025 2:00 PM EST Consult Orthopedic Surgery - [place] [address] [address] Zackary Dumont, DPBrenden [address] [address] Scheduled Referrals Name Type Priority Associated Diagnoses Order Schedule Ambulatory referral to Orthopedic Outpatient Referral Routine Injury of right knee, initial encounter 1 Occurrences starting 05/29/2025 until 05/26/2026 documented as of this encounter Visit Diagnoses Diagnosis Injury of right knee, initial encounter- Primary documented in this encounter Care Teams Apprentice Funeral Director Relationship Specialty Start Date End Date Ramiro Storey MD [address] [place] [address] PCP - General 04/27/01 documented as of this encounter
--- OUTSIDE RECORDS SUMMARY | 2025-06-22 11:35 | XMS_ITS | Data Portability ---
Author Organization [facility] Address [address] [place] [address] Assessment Encounter Date Assessment Date Assessment LastModified by Organization Details LastModified Time 10/03/2022 10/03/2022 Mr. Lewis continues to do well after undergoing right total knee replacement surgery on August 08, 2022. He will continue with his physical therapy exercises. He does know to take antibiotics before any dental work. He will contact me prior to his follow-up appointment in 3 months should any questions or concerns arise. [email or web address] Not available 10/04/2022 15:00:33 Plan of Treatment Reminders Order Date Submit Date Provider Last Modified By Organization Details Last Modified Time Details Appointments None record ed. Lab None record ed. Referral None record ed. Procedures None record ed. Surgeries None record ed. Imaging None record ed. Medication Orders None record ed. Patient TargetsNo targets recorded. Patient InstructionsNo instructions recorded. Reason for Referral None Reported. Problems Name Problem SNOMED Code Status Onset Date Resolution Date Notes Provider Name and Address Organization Details Recorded Time Pain of right knee joint [id number] Active 2022 Kilo Sotelo MD [address] [place] [address] [address], [place], [address] [facility] 15:00:10 Problem Notes None recorded. Procedures Surgical History Date Name Laterality Status Provider Name and Address Organization Details Recorded Time Hernia Repair completed Yahaira Mendoza [place] - [facility], 10/03/2022 10:26:38 Imaging Results None recorded. Procedure Notes None recorded. Medical Equipment None Reported. Allergies Allergen ID Allergen Name Allergen Category Reaction Reaction Severity Criticality Documentation Date Start Date Code Code System Note Provider Name and Address Organization Details Recorded Time 076787 atenolol medicatio n Not available Not available Not available 03/28/20252004 1202 RxNorm React ion: Other (See Comme nts), sever ity: Unkno wn Not Available [facility] 5 01:31:54 1272 morphine medicatio n Not available Not available Not available 10/03/2022 7052 RxNorm Yahaira Mendoza null, [place] [facility] 3 10:24:41 Medications Name Sig Start Date Stop Date Status Note LastModified by Organization Details LastModified Time celecoxib 200 mg capsule Take 1 capsule (200 mg total) by mouth daily. 08/23 completed Not Available Not Available Not Available amoxicillin 500 mg capsule TAKE 4 CAPSULES BY MOUTH ONE HOUR PRIOR TO DENTAL PROCEDURE 2024 active Not Available Not Available Not Avai lable azithromyci n 250 mg tablet TAKE 2 TABLETS BY MOUTH TODAY, THEN TAKE 1 TABLET DAILY FOR 4 DAYS active Not Available Not Available No t Available pravastatin 40 mg tablet TAKE 1 TABLET BY MOUTH EVERY DAY active Not Available Not Available No t Available ibuprofen 800 mg tablet TAKE 1 TABLET BY MOUTH EVERY 8 HOURS NEEDED FOR PAIN 08/22 completed Not Available Not Available Not Available fluconazole 150 mg tablet TAKE 2 TABLETS BY MOUTH ON DAY 1 AND THEN 1 TAB FOR THE NEXT 6 DAYS active Not Available Not Available No t Available aspirin 81 mg tablet,ruby yed release Take by mouth. 2009 active Not Available Not Available Not Avai lable acetaminoph en 500 mg tablet TAKE 2 TABLETS BY MOUTH 3 TIMES A DAY active Not Available Not Available No t Available amoxicillin 500 mg tablet Take 4 tabs 1 hour prior to dental appointme nt 2022 active Not Available Not Available Not Avai lable hydromorpho ne 2 mg tablet TAKE 1-2 TABLETS EVERY 4 HOURS NEEDED FOR PAIN 10/03 completed Not Available Not Available Not Available methocarbam ol 750 mg tablet Take 1 tablet (750 mg total) by mouth every 6 (six) hours. 2022 active Not Available Not Available Not Avai lable methylpredn isolone acetate 40 mg/mL suspension for injection 05/27 completed Not Available Not Available Not Available warfarin 1 mg tablet TAKE 5 TABLETS (5MG) BY MOUTH EVERY EVENING DIRECTED 10/03 completed Not Available Not Available Not Available lisinopril 10 mg-hydrochl orothiazide 12.5 mg tablet TAKE 1 TABLET BY MOUTH EVERY DAY active Not Available Not Available No t Available methylpredn isolone 4 mg tablets in a dose pack TAKE 6 TABLETS ON DAY 1 DIRECTED ON PACKAGE AND DECREASE BY 1 TAB EACH DAY FOR A TOTAL OF 6 DAYS active Not Available Not Available No t Available albuterol sulfate HFA 90 mcg/actuati on aerosol inhaler INHALE 2 PUFFS INTO THE LUNGS EVERY 4 TO 6 HOURS active Not Available Not Available No t Available metformin ER 500 mg tablet,exte nded release 24 hr TAKE 1 TABLET BY MOUTH EVERY DAY WITH BREAKFAST active Not Available Not Available No t Available enoxaparin 40 mg/0.4 mL subcutaneou s syringe INJECT 40 MG (0.4MLS) UNDER THE SKIN ONCE DAILY DISCONTIN UE WHEN INR >2 10/03 completed Not Available Not Available Not Available Senna Plus 8.6 mg-50 mg tablet TAKE 2 TABLETS BY MOUTH AT BEDTIME active Not Available Not Available No t Available rosuvastati n 5 mg tablet TAKE 1 TABLET BY MOUTH EVERY DAY active Not Available Not Available No t Available tadalafil 10 mg tablet TAKE 1 TABLET BY MOUTH EVERY DAY AT BEDTIME NEEDED active Not Available Not Available No t Available Vitals Date Recorded Body height Body mass index (BMI) Body weight Provider Name and Address Organization Details Last Updated DateTime 10/03/2022 172.72 cm 36.5 kg/m2 530353.[address] [facility] 10/03/2022 10:25:44 Social History None recorded. Functional Status None recorded. Mental Status None recorded. Family History Relationship Description Onset Age of this Age Resolved Age Notes LastModified by Organization Details LastModified Time Mother Blood coagulation disorder [email or web address] Not available 2022 10:26:30 Medical History Condition Response Diabetes Y Reflux/GERD Y Hypertension Y Past Encounters Encounter ID Performer Location Encounter Start Date Encounter Closed Date Diagnosis/Indication Diagnosis SNOMED-CT Code Diagnosis ICD10 Code Diagnosis IMO Codes Diagnosis Note 3048 MD PAVAN Hughescarmelita stern [address] [place] [address] [place] [address] 10/03/2022 10:13:49 10/03/2022 10:40:48 Pain of right knee joint 4418174000 47432 M25.561 Health Concerns Section Related Observation LastModified by Organization Detai ls LastModified Time None Recorded Concern Status LastModified by Organization Details LastModified Time None Recorded Advance Directives Directive None Recorded Payers Insurance Date Sequence Insurance Name Policy Number Policy Suh Covered Member ID Suh Member ID Guarantor Name 01/02/2023 1 [facility] [id number] Juan P Lewis [id number] Juan Lewis Notes Date Note Type Note Provider Name and Address Organization Details Recorded Time 10/03/2022 text/html The patient presents with complaints of mild intermittent discomfort in his right knee after undergoing right total knee replacement surgery on August 08, 2022. He continues with his physical therapy exercises. He takes just Tylenol for his discomfort. He denies any fevers or chills. Kilo Sotelo MD [address] [place] [address], [address], [place] [facility] 10/04/2022 15:00:42
[2025-06-22 11:36] VITALS: BMI 35.2
== END 2025-06-22 12:25 | disposition home or self-care (01) ==
LOC: HO.HOS 09:46
PROVIDERS: PCP Pediatrics; Visit Provider Physician Assistant
DX: M25.561 Pain in right knee (principal); Z96.651 Presence of right artificial knee joint
CPT/HCPCS: 99203

== ENCOUNTER → 2025-06-22 10:28 | Outpatient (BNV) | payer BC, SELFPAY | PROVIDERS: Visit Provider Radiology Diagnostic Radiology | DX: M25.561 Pain in right knee (principal); Z96.651 Presence of right artificial knee joint | CPT/HCPCS: 73562 ==